=== PATIENT | female | born 1940 | race Caucasian/White ===

== ENCOUNTER → 2017-01-03 | Outpatient (CLI) | payer MEDICARE ==
--- NOTE | 2017-01-03 20:21 | PN ---
This patient has moderate obstructive sleep apnea with an AHI of 20 and currently on CPAP pressure of 11 cm of water. She is coming in for a follow-up and a compliancy check. Her last evaluation was in August 2014. Doing well. Still very compliant with CPAP therapy. She has gained around 8 pounds and her weight has come up from 242 up to 250. The average CPAP use is 5 hours and 6 minutes. Her AHI while on treatment is down to 0.9. She is using a Quattro FX full-face mask. She works with [employer] as her main DME. Otherwise her review of systems is negative and the patient has not had any significant health issues since her last evaluation here in the office 2 years ago. BP is 112/83, pulse 88, respirations 16. BMI is 54. Weight is 250, temperature 97.6, saturation 93% on room air. GENERAL APPEARANCE: Calm, comfortable. HEENT: Short neck, crowding posterior pharynx. LUNGS: Diminished; otherwise clear. Heart sounds are regular rate and rhythm. Normal S1, S2. ABDOMEN: Soft, nontender. No organomegaly. EXTREMITIES: No edema. No cyanosis, or clubbing. IMPRESSIONS: 1. Obstructive sleep apnea moderate to severe; apnea-hypopnea index of 20, currently on CPAP pressure of 11 and compliant on CPAP therapy. 2. Obesity, body mass index of 54. PLAN: 1. Weight loss. 2. Continue at same level of pressure. 3. Reorder a Quattro FX full-face mask. 4. See me back in a year's time in follow-up.
== END | disposition home or self-care (01) ==
LOC: SLEEP 16:50
PROVIDERS: ATTEND Internal Medicine Critical Care Medicine
DX: G47.33 Obstructive sleep apnea (adult) (pediatric) (principal); E66.9 Obesity, unspecified; Z68.43 Body mass index [BMI] 50.0-59.9, adult

== ENCOUNTER → 2017-07-14 | Outpatient (CLI) | payer MEDICARE ==
--- NOTE | 2017-07-17 07:09 | MM ---
Reason for exam: additional evaluation requested from prior study. Last mammogram was performed 1 year and 5 months ago. History: Patient is postmenopausal and history of other cancer. Family history of breast cancer in sister at age 62. Benign right mammotome panel of the right breast, April 13, 2007. Benign US left guided mammotome of the left breast, February 02, 2006. Benign cyst aspiration of the left breast, January 24, 2006. Cyst aspiration of the right breast. Took hormonal contraceptives for 5 years beginning at age 29. Physical Findings: Nurse did not find any significant physical abnormalities on exam. MG 3D Diag Mammo W/Cad JOE Bilateral CC and MLO view(s) were taken. Prior study comparison: February 19, 2016, bilateral MG 3d screening mammo w/cad. February 06, 2015, bilateral MG diagnostic mammo w CAD JOE. January 30, 2014, CAD bilateral diagnostic mammogram. The breast tissue is heterogeneously dense. This may lower the sensitivity of mammography. There are predominately coarse calcifications in the upper outer quadrant that although have increased in number appear similar in morphology to multiple other bilateral calcifications and are probably benign, 6 month follow up recommended. These results were verbally communicated with the patient and result sheet given to the patient on 07/14/17. ASSESSMENT: Probably benign, BI-RAD 3 RECOMMENDATION: Follow-up diagnostic mammogram of the right breast in 6 months.
== END | disposition home or self-care (01) ==
LOC: RADMAMWWP 13:47
PROVIDERS: ATTEND Family Medicine
DX: R92.8 Other abnormal and inconclusive findings on diagnostic imaging of breast (principal)
CPT/HCPCS: G0204; G0279

== ENCOUNTER → 2017-12-25 | Outpatient (CLI) | payer MEDICARE ==
--- NOTE | 2017-12-25 14:57 | CT ---
EXAMINATION TYPE: CT brain wo con DATE OF EXAM: 12/25/2017 HISTORY: Dizziness and syncope. CT DLP: 1005 mGycm. Automated Exposure Control for Dose Reduction was Utilized. TECHNIQUE: CT scan of the head is performed without contrast. COMPARISON: None. FINDINGS: There is no acute intracranial hemorrhage or midline shift identified. There is diffuse v entricular and sulcal prominence consistent with diffuse age-related cerebral atrophy. There is low- attenuation in the periventricular white matter consistent with chronic small vessel ischemic change. There is dependent fluid in the left sphenoid sinus. Remainder paranasal sinuses are clear. Globes a re intact bilaterally. Increased fluid signal right mastoid air cells is present. Calcified plaque distal internal carotid arteries bilaterally is present. IMPRESSION: No acute intracranial hemorrhage or midline shift. There is mild diffuse age-related ce rebral atrophy and mild to moderate chronic small vessel ischemic change noted. Possible right-sided mastoiditis, clinical correlation advised.
--- NOTE | 2017-12-25 16:17 | US ---
EXAMINATION TYPE: US carotid duplex BILAT DATE OF EXAM: 12/25/2017 COMPARISON: NONE CLINICAL HISTORY: R42 dizziness, R55 syncope. Syncope EXAM MEASUREMENTS: RIGHT: Peak Systolic Velocity (PSV) cm/sec ----- Right CCA: 41.2 ----- Right ICA: 68.6 ----- Right ECA: 132.5 ICA/CCA ratio: 1.7 RIGHT: End Diastole cm/sec ----- Right CCA: 12.2 ----- Right ICA: 25.0 ----- Right ECA: 22.9 LEFT: Peak Systolic Velocity (PSV) cm/sec ----- Left CCA: 45.4 ----- Left ICA: 49.6 ----- Left ECA: 79.2 ICA/CCA ratio: 1.1 LEFT: End Diastole cm/sec ----- Left CCA: 14.1 ----- Left ICA: 20.0 ----- Left ECA: 7.4 VERTEBRALS (direction of flow): Right Vertebral: Antegrade Left Vertebral: Antegrade Rhythm: Arrhythmia Bilateral intimal thickening, minimal plaque bilateral bulb, elevated velocity: right proximal ECA, n o significant stenosis. IMPRESSION: Intimal thickening and mild atheromatous plaquing without significant flow-limiting sten osis. Criteria for Assigning % of Stenosis / Diameter reduction (Estimation based on the indirect measurements of the internal carotid artery velocities (ICA PSV). 1. Normal (no stenosis)=ICA PSV < 125 cm/s: ratio < 2.0: ICA EDV<40 cm/s. 2. Less than 50% stenosis=ICA PSV < 125 cm/s: ratio < 2.0: ICA EDV<40 cm/s. 3. 50 to 69% stenosis=ICA PSV of 125 to 230 cm/s: ration 2.0 ? 4.0: ICA EDV 40-100 cm/s. 4. Greater than 70% stenosis to near occlusion= ICA PSV > 230 cm/s: ratio > 4.0: ICA EDV > 100 cm/s. 5. Near occlusion= ICA PSV velocities may be low or undetectable: variable ratio and ICA EDV. 6. Total occlusion=unable to detect flow.
--- NOTE | 2017-12-26 10:27 | ECHOF ---
Referral Reason:R42 dizziness, R55 syncope MEASUREMENTS -------- HEIGHT: 149.9 cm WEIGHT: 109.3 kg BP: 133/80 RVIDd: 3.1 cm (< 3.3) IVSd: 1.3 cm (0.6 - 1.1) LVIDd: 2.9 cm (3.9 - 5.3) LVPWd: 1.2 cm (0.6 - 1.1) IVSs: 1.9 cm LVIDs: 2.4 cm LVPWs: 1.6 cm LA Diam: 3.9 cm (2.7 - 3.8) LAESV Index (A-L): 35.16 ml/m Ao Diam: 3.2 cm (2.0 - 3.7) AV Cusp: 2.2 cm (1.5 - 2.6) MV EXCURSION: 15.618 mm (> 18.000) MV EF SLOPE: 53 mm/s (70 - 150) EPSS: 1.3 cm RAP: 5.00 mmHg RVSP: 20.32 mmHg FINDINGS -------- Atrial fibrillation. This was a technically adequate study. The left ventricular size is normal. There is mild concentric left ventricular hypertrophy. Overa ll left ventricular systolic function is low-normal with, an EF between 50 - 55 %. The right ventricle is normal in size. The global wall thickness of the right ventricle is mildly e nlarged. LA is moderately dilated 34-39 ml/m2 The right atrium is normal in size. There is mild aortic valve sclerosis. Trace amount of aortic regurgitation. The mitral valve leaflets are mildly thickened. Mild mitral annular calcification present. Trace tricuspid regurgitation present. Right ventricular systolic pressure is normal at < 35 mmHg. The pulmonic valve was not well visualized. The aortic root size is normal. IVC Not well visulized. There is no pericardial effusion. CONCLUSIONS -------- 1. Atrial fibrillation. 2. This was a technically adequate study. 3. The left ventricular size is normal. 4. There is mild concentric left ventricular hypertrophy. 5. Overall left ventricular systolic function is low-normal with, an EF between 50 - 55 %. 6. The right ventricle is normal in size. 7. The global wall thickness of the right ventricle is mildly enlarged. 8. LA is moderately dilated 34-39 ml/m2 9. The right atrium is normal in size. 10. There is mild aortic valve sclerosis. 11. Trace amount of aortic regurgitation. 12. The mitral valve leaflets are mildly thickened. 13. Mild mitral annular calcification present. 14. Trace tricuspid regurgitation present. 15. Right ventricular systolic pressure is normal at < 35 mmHg. 16. The pulmonic valve was not well visualized. 17. The aortic root size is normal. 18. IVC Not well visulized. 19. There is no pericardial effusion. STEP DOWN SPECIALIST: Nicolle Vasquez RDCS
== END | disposition home or self-care (01) ==
LOC: RADCTMAIN 14:16
PROVIDERS: ATTEND Family Medicine
DX: I34.8 Other nonrheumatic mitral valve disorders (principal); I35.8 Other nonrheumatic aortic valve disorders; I48.91 Unspecified atrial fibrillation; I51.7 Cardiomegaly; I65.23 Occlusion and stenosis of bilateral carotid arteries; G31.1 Senile degeneration of brain, not elsewhere classified; I67.82 Cerebral ischemia
CPT/HCPCS: 70450; 93306; 93880

== ENCOUNTER → 2018-02-06 | Outpatient (CLI) | payer MEDICARE ==
--- NOTE | 2018-02-06 20:10 | PN ---
PROGRESS NOTE 77-year-old female patient coming in for a compliancy check regarding her TOMMIE treatment. The patient has been a CPAP use for more than 5 years. She has been utilizing CPAP pressure of 11 cm of water for symptomatic obstructive sleep apnea. AHI at baseline was around 20. She has been very compliant. She continues to benefit from treatment. She has been averaging around 4 hours and 42 minutes of CPAP use per night. Her CPAP use for more than 4 hours is around 66%. No significant leaks around the mask. Her AHI is at 0.7 while on treatment. No periodic breathing and she is using a Quattro FX full face mask. She has no complaints. She has continues to benefit from treatment. She cannot imagine herself sleeping without machine and she is using her own unit which is quite functional and there was no issues with the functionality of the machine. REVIEW OF SYSTEMS: 12-point review of system was done. No angina. No palpitations. No shortness of breath. No palpitation at nighttime. No heartburn. No change in mental status. No headaches. No focal neurological deficits. No falls. No ulceration. No skin lesions. No other complaints. PHYSICAL EXAMINATION: BP is 130/84, pulse 92, respirations 18, temperature 97.5, saturation 94% on room air. Weight is 254. Height is 4 feet 10 inches, BMI 53.0, Meriden score of 12. GENERAL APPEARANCE: Calm, comfortable. Head is atraumatic, normocephalic. Neck is short, supple. There is no JVD. No goiter or neck masses. LUNGS: Diminished otherwise clear. HEART: Sounds regular rhythm. Normal S1, S2. No S3. No murmurs. ABDOMEN: Soft, nontender. No organomegaly. EXTREMITIES: No edema. No cyanosis or clubbing. NEUROLOGIC: The patient is alert x3. There is no focal neurological deficit. IMPRESSION: 1. Symptomatic obstructive sleep apnea moderate in severity with an AHI of 20. Continues to use successful CPAP therapy at a pressure of 11. 2. Hypersomnia, improved. 3. Obesity, weight is unchanged and stable. PLAN: 1. Continue CPAP with a pressure of 11. 2. Quattro FX full face mask. 3. Encourage weight loss. 4. Continue her CPAP supplies. 5. No need for any adjustment as long as the patient continues to benefit from treatment and her apnea score while on treatment has been almost less than 1. 6. Continue to follow and see me back on an as-needed basis, probably in a few years time. MMODL / IJN: [id number] /
== END | disposition home or self-care (01) ==
LOC: SLEEP 16:52
PROVIDERS: ATTEND Internal Medicine Critical Care Medicine
DX: G47.33 Obstructive sleep apnea (adult) (pediatric) (principal); G47.10 Hypersomnia, unspecified; E66.9 Obesity, unspecified; Z68.43 Body mass index [BMI] 50.0-59.9, adult; Z99.89 Dependence on other enabling machines and devices

== ENCOUNTER → 2018-05-04 | Day surgery (SDC) | payer MEDICARE ==
[2018-04-27 10:28] VITALS: BMI 50.5
[~2018-05-04] MED LIST: ALPRAZolam 0.25 MG TAB PO PRN; ALPRAZolam 0.5 MG TAB PO PRN; ASPIRIN 325 MG TAB PO STA; ATORVASTATIN 80 MG TAB PO STA; CHOLECALCIFEROL 1,000 UNIT TAB PO SCH; ENALAPRIL PO SCH; FLUVASTATIN SODIUM 40 MG PO SCH; FUROSEMIDE 20 MG TAB PO SCH; HEPARIN SODIUM 1,000 UN/ML (10ML VL) IV ONE; HYDROCHLOROTHIAZIDE PO SCH; IOPAMIDOL-370 125ML BTL INJ ONE; ISOSORBIDE MONONITRATE ER 60 MG TAB.ER.24H PO SCH; LIDOCAINE 2% INJ 20 MG/ML SQ ONE; MECLIZINE 25 MG TAB PO PRN; METOPROLOL TARTRATE 25 MG TAB PO SCH; NITROGLYCERIN SL TABS 0.4 MG TAB SUBLINGUAL PRN; NON-FORMULARY DRUG (Potassium Chloride [K-Tab Er] 10 MEQ) PO SCH; OXYBUTYNIN 15 MG TAB.ER.24 PO SCH; RX INFO: IV CONTRAST WAS GIVEN 1 EACH MISC MISCELLANE PRN; SODIUM CHLORIDE 0.9% 1,000 ML IV SCH; SODIUM CHLORIDE 0.9% 1,000 ML in EMPTY BAG 1 BAG IV ONE; VERAPAMIL SYRINGE (5 MG/10 ML) INTRAARTER ONE; fentaNYL (PF) 50 MCG/ML 2 ML AMP IV ONE
[2018-05-04 11:37] VITALS: RESP 18; TEMP 98.2
[2018-05-04] MEDS: METOPROLOL TARTRATE 5 MG/5 ML VIAL IVP ONE ×2 (12:29→12:34)
--- NOTE | 2018-05-04 15:39 | CC ---
CARDIAC CATHETERIZATION REPORT May 04, 2018 To: Dr. Khan Regarding: Sonya Iniguez (38) Dear Dr. Khan, I had the pleasure of performing cardiac catheterization on Mrs. Iniguez at [facility] on May 04. A full copy of the procedure note will be forwarded to you. In brief, she was found to have mild to moderate triple-vessel coronary artery disease without any evidence of high-grade stenosis. Based on those findings, I have recommended continued medical therapy with the aggressive risk factor modifications you have initiated. Thank you again for allowing me to participate in her care. Please feel free to call with any questions. Sincerely yours, Juaquin Zepeda MD MMMARVINL / SIMONN: [id number] /
--- NOTE | 2018-05-04 15:39 | CC ---
CARDIAC CATHETERIZATION REPORT Mrs. Iniguez is a 77-year-old female with known history of persistent atrial fibrillation, history of hypertension and hyperlipidemia who has been complaining of symptoms of dyspnea on exertion. In view of that, she underwent myocardial perfusion imaging that revealed anteroapical inducible ischemia. In view of that, recommendation was made regarding cardiac catheterization. The procedure, its risks and complications were discussed with the patient, who was in full understanding and agreement. PROCEDURE: Patient was brought to the woods laborer in a fasting, semi-sedated state after receiving fentanyl and Benadryl and achieving moderate conscious sedated state. Using Xylocaine anesthesia and Seldinger technique, a 6-Croatian sheath was introduced in the right radial artery. Selective right and left angiography was performed using 5-Croatian 3-1/2 bend right and left Guru catheters. Multiple views of the coronary arteries, including hemiaxial views, were obtained. Following that a 5-Croatian tight pigtail catheter was introduced into the left ventricle and a 30-degree SMALLWOOD view of the left ventricle was obtained. Following that, the catheter and sheaths were removed. Hemostasis was obtained with deployment of a TR band. There was no immediate complication. Patient was returned to her room in stable condition. Of note, the patient received a total of 5000 units of intravenous heparin as well as intra-arterial verapamil. FINDINGS: LEFT MAIN: This is a large-sized vessel bifurcating into left circumflex, left anterior descending artery. Left main coronary artery has no evidence of high-grade stenosis. LEFT ANTERIOR DESCENDING ARTERY: This is a large-sized vessel reaching toward the apex, tapers down in distal third, giving rise to a large diagonal branch in the mid segment. In the proximal segment of the LAD there is a plaque up to 40% to 50%. At the bifurcation of the diagonal branch, the LAD has a focal area of stenosis of about 50% to 60%. The rest of the vessel has intimal disease without any evidence of high-grade stenosis. LEFT CIRCUMFLEX: This is a non-dominant vessel giving rise to a large obtuse marginal branch. The left circumflex has mild intimal disease of 20% to 30% without any evidence of high-grade stenosis. RIGHT CORONARY ARTERY: This is a large dominant vessel bifurcating into PDA, posterolateral segment and branches. The right coronary artery in the mid segment has a 30% to 40% plaque. The rest of the vessel has no high-grade stenosis. LEFT VENTRICULOGRAM: Left ventriculogram was performed in the 30-degree SMALLWOOD view and revealed a normal left ventricular size and systolic function. Ejection fraction is 60%. There was significant mitral annulus calcification. CONCLUSION: 1. Moderate triple-vessel coronary artery disease. 2. Normal left ventricular size and systolic function. RECOMMENDATION: In view of findings and anatomy, I have recommended continued medical therapy with the aggressive risk factor modifications that have been initiated. Those findings and recommendations were discussed with the patient and her family, and they are in full understanding and agreement. Duration of procedure: 22 minutes. MMODL / SIMONN: [id number] /
[2018-05-04 16:59] VITALS: BP 144/72; PULSE 86
== END | disposition home or self-care (01) ==
LOC: CATHCVL 10:54
PROVIDERS: ATTEND Internal Medicine Interventional Cardiology
DX: I25.10 Atherosclerotic heart disease of native coronary artery without angina pectoris (principal); I10 Essential (primary) hypertension; I05.9 Rheumatic mitral valve disease, unspecified; I48.1 Persistent atrial fibrillation; E78.2 Mixed hyperlipidemia; E66.9 Obesity, unspecified; Z68.43 Body mass index [BMI] 50.0-59.9, adult; Z79.899 Other long term (current) drug therapy; Z88.0 Allergy status to penicillin
CPT/HCPCS: 93458; C1894; C1769; J2001; J3010; J1644; Q9967

== ENCOUNTER → 2018-08-10 | Outpatient (CLI) | payer MEDICARE ==
--- NOTE | 2018-08-10 12:56 | MM ---
Reason for exam: additional evaluation requested from prior study. Last mammogram was performed 1 year and 1 month ago. History: Patient is postmenopausal and history of other cancer. Family history of breast cancer in sister at age 62. Benign right mammotome panel of the right breast, April 13, 2007. Benign US left guided mammotome of the left breast, February 02, 2006. Benign cyst aspiration of the left breast, January 24, 2006. Cyst aspiration of the right breast. Took hormonal contraceptives for 5 years beginning at age 29. Physical Findings: Nurse did not find any significant physical abnormalities on exam. MG 3D Diag Mammo W/Cad JOE Bilateral CC, MLO, and XCCL view(s) were taken. Prior study comparison: July 14, 2017, bilateral MG 3d diag mammo w/cad JOE. February 19, 2016, bilateral MG 3d screening mammo w/cad. There are scattered fibroglandular densities. Finding: There are stable round, two grouped/clustered calcifications in the right breast consistent with prior exams. No significant changes in finding since July 14, 2017 and February 19, 2016. These results were verbally communicated with the patient and result sheet given to the patient on 08/10/18. ASSESSMENT: Benign, BI-RAD 2 RECOMMENDATION: Routine screening mammogram of both breasts in 1 year.
== END ==
LOC: RADMAMWWP 11:02
PROVIDERS: ATTEND Family Medicine
DX: R92.8 Other abnormal and inconclusive findings on diagnostic imaging of breast (principal)
CPT/HCPCS: 77066; G0279; 77062

== ENCOUNTER → 2019-04-02 | Outpatient (CLI) | payer MEDICARE ==
--- NOTE | 2019-04-02 19:19 | PN ---
PROGRESS NOTE Sonya is 78, coming in for an annual check. She has TOMMIE AHI of 20. On a CPAP pressure of 11 cm. She is using a Quattro FX full face mask. Remains compliant. Machine is functional. Averaging around 5 hour of CPAP use per night. Her CPAP use for more than 4 hours is 66%. No recent weight gain or weight loss. No major hypersomnia or sleepiness during the day. She has been diagnosed having diabetes mellitus, and she is currently on insulin. Rest of the medication remains unchanged. She remains on long- term anticoagulation with Xarelto. REVIEW OF SYSTEMS: 14-point review of system was done. Positive findings are mentioned above in the history of present illness. No major hypersomnia or sleepiness. No palpitation. No chest pain. No shortness of breath. No angina. No nausea. No vomiting. No diarrhea. No altered mentation. No episodes of falling asleep while watching TV or talking to other people. PHYSICAL EXAMINATION: BP is 112/67, pulse 90, respirations 16, temperature 98.0, saturation 97% on room air. Height is 4 feet 10 inches. Weight 232, BMI 48.4. GENERAL APPEARANCE: Calm, comfortable. Head is atraumatic, normocephalic. NECK: Supple. There is no JVD. No goiter or neck masses. Mallampati class IV. LUNGS: Clear to auscultation. HEART: Sounds are regular. Plus S1, S2. No S3, S4. No murmurs. ABDOMEN: Soft, nontender. No organomegaly. EXTREMITIES: No edema. No cyanosis or clubbing. NEUROLOGIC: Alert and oriented x3. No focal neurological deficits. PSYCHIATRIC: Negative for anxiety or depression. IMPRESSION: 1. Obstructive sleep apnea, moderate to severe, AHI of 20. Currently on CPAP pressure of 11 successfully treated. 2. Hypersomnia, improved. 3. Diabetes mellitus. Currently on insulin. PLAN: 1. I offered this patient AirFit F20 full face mask. 2. Keep CPAP at same pressure of 11 cm of water. 3. Encourage weight loss. 4. See me back in a year's time, earlier if need, treatment is successful for now. MMODL / IJN: [id number] /
== END | disposition home or self-care (01) ==
LOC: SLEEP 16:25
PROVIDERS: ATTEND Internal Medicine Critical Care Medicine
DX: G47.33 Obstructive sleep apnea (adult) (pediatric) (principal); E11.9 Type 2 diabetes mellitus without complications; Z99.89 Dependence on other enabling machines and devices; Z79.4 Long term (current) use of insulin

== ENCOUNTER → 2022-05-04 | Outpatient (CLI) | payer MEDICARE ==
--- NOTE | 2022-05-10 10:31 | MM ---
Reason for Exam: Screening (asymptomatic). Last mammogram was performed 3 year(s) and 9 month(s) ago. Patient History: Menarche at age 12. First Full-Term at age 20. Hysterectomy at age 34. Postmenopausal. Other cancer. Hormonal Contraceptives, starting at age 29 for 5 years. 01/24/2006, Benign Cyst Aspiration on the left side. Cyst Aspiration on the Right side. 04/13/2007, Benign Core Biopsy on the right side. 02/02/2006, Benign Core Biopsy on the left side. Sister had breast cancer, age 62. Risk Values: Luann 5 year model risk: 4.5%. NCI Lifetime model risk: 5.9%. Prior Study Comparison: 02/19/2016 Bilateral Screening Mammogram, [facility]. 07/14/2017 Bilateral Diagnostic Mammogram, [facility]. 08/10/2018 Bilateral Diagnostic Mammogram, [facility]. Tissue Density: There are scattered fibroglandular densities. Findings: Analyzed By CAD. Benign bilateral vascular and secretory calcifications. Additional benign coarse calcifications particularly on the right. Chronic low-density bilateral breast nodularity. No significant change from prior exams. Overall Assessment: Benign, BI-RAD 2 Management: Screening Mammogram of both breasts in 1 year. 1. A clinical breast exam by your physician is recommended on an annual basis and results should be correlated with mammographic findings. 2. The patient should continue monthly self breast exams. 3. A negative mammogram should not preclude additional follow-up of suspicious palpable abnormalities. Electronically signed and approved by: Chintan Murphy M.D. Radiologist
== END | disposition home or self-care (01) ==
LOC: RADMAMWWP 16:43
PROVIDERS: ATTEND Family Medicine
DX: Z12.31 Encounter for screening mammogram for malignant neoplasm of breast (principal); Z80.3 Family history of malignant neoplasm of breast
CPT/HCPCS: 77063; 77067

== ENCOUNTER → 2023-05-17 | Outpatient (CLI) | payer MEDICARE ==
--- NOTE | 2023-05-18 09:18 | MM ---
Reason for Exam: Screening (asymptomatic). Last screening mammogram was performed 12 month(s) ago. Patient History: Menarche at age 12. First Full-Term at age 20. Hysterectomy at age 34. Postmenopausal. Hormonal Contraceptives, starting at age 29 for 5 years. 01/24/2006, Benign Cyst Aspiration on the left side. Cyst Aspiration on the Right side. 04/13/2007, Benign Core Biopsy on the right side. 02/02/2006, Benign Core Biopsy on the left side. Sister had breast cancer, age 62. Risk Values: Luann 5 year model risk: 4.3%. NCI Lifetime model risk: 5.2%. Prior Study Comparison: 07/14/2017 Bilateral Diagnostic Mammogram, [facility]. 08/10/2018 Bilateral Diagnostic Mammogram, [facility]. 05/04/2022 Bilateral MG 3D screening mammo w/cad, [facility]. Tissue Density: The breast tissue is heterogeneously dense. This may lower the sensitivity of mammography. Findings: Analyzed By CAD. There is no suspicious group of microcalcifications or new suspicious mass in either breast. Overall Assessment: Benign, BI-RAD 2 Management: Screening Mammogram of both breasts in 1 year. . Patient should continue monthly self-breast exams. A clinical breast exam by your physician is recommended on an annual basis. This exam should not preclude additional follow-up of suspicious palpable abnormalities. Note on Luann scores and lifetime risk: 1. A Luann score greater than 3% is considered moderate risk. If this is the case, consider specialist referral to assess eligibility for a risk reducing agent. 2. If overall lifetime risk for the development of breast cancer is 20% or higher, the patient may qualify for future screening with alternating mammogram and breast MRI. Electronically signed and approved by: Marcelino Hartman M.D. Radiologis
== END | disposition home or self-care (01) ==
LOC: RADMAMWWP 16:24
PROVIDERS: ATTEND Family Medicine
DX: Z12.31 Encounter for screening mammogram for malignant neoplasm of breast (principal); Z78.0 Asymptomatic menopausal state; Z80.3 Family history of malignant neoplasm of breast
CPT/HCPCS: 77063; 77067